=== PATIENT | male | born 1995 | race Two or more races ===

== ENCOUNTER 2021-06-09 11:32 | Emergency (ER) | payer BC, OTHER ==
[~2021-06-09] VITALS: Ht 175.3 cm; Wt 74.8 kg
[2021-06-09 15:19] VITALS: BP 114/71
== END 2021-06-09 15:54 | disposition home or self-care (01) ==
LOC: ER 11:32
DX: D23.21 Other benign neoplasm of skin of right ear and external auricular canal (principal)